=== PATIENT | male | born 1970 | race Caucasian/White ===

== ENCOUNTER 2016-12-26 18:28 | Emergency (ER) | payer BC ==
--- NOTE | 2016-12-26 18:57 | EDM.PDOC ---
ED HPI GENERAL MEDICAL PROBLEM - General Chief Complaint: Lower Extremity Injury/Pain Stated Complaint: PT HURT RT LEG Time Seen by Provider: 12/26/16 18:50 Source of Information: Reports: Patient History Limitations: Reports: No Limitations - History of Present Illness INITIAL COMMENTS - FREE TEXT/NARRATIVE: HISTORY AND PHYSICAL: History of present illness: [Patient comes to the emergency room complaining of right knee pain. States that he fell off a horse one month ago and landed on his right side. He has had no improvement in his pain since onset. He complains of pain to his entire right knee, worse to the lateral aspect. He has not followed up with his regular doctor, Dr. Weaver, because it is difficult for him to get time off work. Has not taken any medication for the pain that has been applying ice packs regularly. Denies numbness and tingling. Is unable to bend his knee due to pain and a feeling of tightness. He noticed the swelling started 2 days after falling off a horse.] Review of systems: As per history of present illness and below otherwise all systems reviewed and negative. Past medical history: As per history of present illness and as reviewed below otherwise noncontributory. Surgical history: As per history of present illness and as reviewed below otherwise noncontributory. Social history: No reported history of drug or alcohol abuse. Family history: As per history of present illness and as reviewed below otherwise noncontributory. Physical exam: HEENT: Atraumatic, normocephalic. Lungs: Clear to auscultation, breath sounds equal bilaterally. Heart: S1S2, regular rate and rhythm. Extremities: Right knee appears swollen and is tight with palpation. No bruising. Generalized erythema to his right knee. Is mildly warm with palpation. negative for cords or calf pain. Unable to perform anterior posterior drawer test due to pain with flexion of his knee. Neurovascular unremarkable. Neuro: Awake, alert, oriented. Exam nonfocal. Diagnostics: [Right knee x-ray, CBC] Impression: [Right knee pain] Plan: [Discussed with patient that his x-ray shows no fractures and labs are normal. Encouraged him to follow-up with Dr. Nanette Ott who is seen in the past. Referral is made. He is given an Rx for Diclofenac 50 mg #30 sig 1 by mouth 3 times a day with food 0 refills. Patients in agreement with today's plan.] Definitive disposition and diagnosis as appropriate pending reevaluation and review of above. right lower exteremity Pain Score (Numeric/FACES): 7 - Related Data Allergies Allergy/AdvReac Type Severity Reaction Status Date / Time No Known Allergies Allergy Verified 12/26/16 18:40 Home Meds: Home Meds Blood Pressure Med 12/26/16 [History] Past Medical History - Past Health History Medical/Surgical History: Denies Medical/Surgical History Cardiovascular History: Reports: Hypertension Endocrine/Metabolic History: Reports: Obesity/BMI 30+ Social & Family History - Family History Family Medical History: Noncontributory - Tobacco Use Smoking Status *Q: Never Smoker Second Hand Smoke Exposure: No - Alcohol Use Days Per Week of Alcohol Use: 0 Number of Drinks Per Day: 0 Total Drinks Per Week: 0 - Recreational Drug Use Recreational Drug Use: No Drug Use in Last 12 Months: No Review of Systems - Review of Systems Review Of Systems: ROS reveals no pertinent complaints other than HPI. ED EXAM, GENERAL - Physical Exam Exam: See Below Course - Vital Signs Last Recorded V/S: Last Vital Signs Temp 98.3 F 12/26/16 19:12 Pulse 76 12/26/16 19:12 Resp 20 12/26/16 19:12 BP 175/101 H 12/26/16 19:12 Pulse Ox 97 12/26/16 19:12 - Orders/Labs/Meds Orders: Active Orders 24 hr Category Date Time Status Knee 1V or 2V Rt [CR] Stat Exams 12/26/16 18:52 Taken Labs: Laboratory Tests 12/26/16 Range/Units 19:03 WBC 7.00 (4.0-11.0) K/uL RBC 4.94 (4.50-5.90) M/uL Hgb 13.7 (13.0-17.0) g/dL Hct 41.3 (38.0-50.0) % MCV 83.6 (80.0-98.0) fL MCH 27.7 (27.0-32.0) pg MCHC 33.2 (31.0-37.0) g/dL RDW Std Deviation 46.4 (28.0-62.0) fl RDW Coeff of Noe 15 (11.0-15.0) % Plt Count 193 (150-400) K/uL MPV 9.00 (7.40-12.00) fL Neut % (Auto) 59.4 (48.0-80.0) % Lymph % (Auto) 26.1 (16.0-40.0) % [place] % (Auto) 12.7 (0.0-15.0) % Eos % (Auto) 1.7 (0.0-7.0) % Baso % (Auto) 0.1 (0.0-1.5) % Neut # (Auto) 4.2 (1.4-5.7) K/uL Lymph # (Auto) 1.8 (0.6-2.4) K/uL [place] # (Auto) 0.9 H (0.0-0.8) K/uL Eos # (Auto) 0.1 (0.0-0.7) K/uL Baso # (Auto) 0.0 (0.0-0.1) K/uL Nucleated RBC % 0.0 /100WBC Nucleated RBCs # 0 K/uL Departure - Departure Time of Disposition: 20:25 Disposition: Home, Self-Care 01 Condition: Good Clinical Impression: Right knee pain Qualifiers: Chronicity: acute Qualified Code(s): M25.561 - Pain in right knee - Discharge Information Referrals: PCP,None [Primary Care Provider] - Forms: ED Department Discharge Additional Instructions: The following information is given to patients seen in the emergency department who are being discharged to home. This information is to outline your options for follow-up care. We provide all patients seen in our emergency department with a follow-up referral. The need for follow-up, as well as the timing and circumstances, are variable depending upon the specifics of your emergency department visit. If you don't have a primary care physician on staff, we will provide you with a referral. We always advise you to contact your personal physician following an emergency department visit to inform them of the circumstance of the visit and for follow-up with them and/or the need for any referrals to a consulting specialist. The emergency department will also refer you to a specialist when appropriate. This referral assures that you have the opportunity for follow-up care with a specialist. All of these measure are taken in an effort to provide you with optimal care, which includes your follow-up. Under all circumstances we always encourage you to contact your private physician who remains a resource for coordinating your care. When calling for follow-up care, please make the office aware that this follow-up is from your recent emergency room visit. If for any reason you are refused follow-up, please contact the [facility] emergency department at and asked to speak to the emergency department charge nurse. Special[facility] [address], [address] [place] [address] Schedule appointment at the clinic listed above next week. Return to ER as needed as discussed. - My Orders Last 24 Hours: My Active Orders 12/26/16 18:52 Knee 1V or 2V Rt [CR] Stat - Assessment/Plan Last 24 Hours: My Active Orders 12/26/16 18:52 Knee 1V or 2V Rt [CR] Stat
[2016-12-27 02:18] VITALS: BP 163/94
--- NOTE | 2016-12-28 13:53 | CR ---
EXAM DATE: 12/26/16 PATIENT'S AGE: 46 Patient: KIRSTEN PUTNAM Facility: [place], [place] Site . Site : 1970 Study: XRay Knee Right [id number]/[id number] 7:57:50 PM Ordering Physician: Doctor Sevilla Final Report: Indication: Pain and swelling. Technique: Two views. Findings: Mild lateral greater than medial joint space narrowing with small lateral marginal osteophytes. Patellofemoral joint space appears maintained. Large normal variant fabella. No joint effusion. No acute fracture or bone lesion. Dictated by Myles Read MD @ Dec 26 2016 8:03PM (Electronic Signature) Report Signed by Proxy. JESUS
== END 2016-12-26 20:45 | disposition home or self-care (01) ==
LOC: MW.ED 18:28
DX: M25.561 Pain in right knee (principal); I10 Essential (primary) hypertension; E66.9 Obesity, unspecified; Z68.39 Body mass index [BMI] 39.0-39.9, adult
CPT/HCPCS: 36415; 73560-26-RT; 73560-RT; 85025; 99283

== ENCOUNTER 2017-11-21 10:46 | Emergency (ER) | payer OTHER, BC ==
[2017-11-21] MEDS ORDERED: Sodium Chloride 0.9% 1,000 ML IV ONE (10:53)
[2017-11-21] MEDS ORDERED: Ondansetron 4 MG/2 ML SDV IVPUSH ONE (10:53)
[2017-11-21] MEDS ORDERED: Morphine 4 MG/ML Syringe IVPUSH ONE (10:53)
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
[2017-11-21 11:27] LABS: CHLORIDE,CL 106 mmol/L (98-107); SODIUM,NA 140 mmol/L (136-148)
[2017-11-21] MEDS ORDERED: Morphine 10 MG/ML Syringe IVPUSH ONE (11:38)
[2017-11-21] MEDS ORDERED: Sodium Chloride 0.9% 1,000 ML IV SCH (12:30)
[2017-11-21] MEDS ORDERED: HYDROmorphone 2 MG/ML SDV IVPUSH ONE (12:31)
[2017-11-21 15:12] VITALS: BP 159/79
[2017-11-21] MEDS ORDERED: Iopamidol 755 MG/ML 500 ML Multipack Bottle IVPUSH STA (19:03)
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
== END 2017-11-21 13:05 ==
LOC: MW.ED 10:46
DX: S72.124A Nondisplaced fracture of lesser trochanter of right femur, initial encounter for closed fracture (principal); I10 Essential (primary) hypertension; V68.5XXA Driver of heavy transport vehicle injured in noncollision transport accident in traffic accident, initial encounter
CPT/HCPCS: 36415; 70450; 71045; 72125; 72170; 74177; 80053; 85025; 93005; 96361; 96374; 96375; 99285; G0390; J1170; J2270; J2405; J7040; Q9967